=== PATIENT | female | born 1930 | race Caucasian/White ===

== ENCOUNTER 2017-12-09 09:04 | Outpatient (CLI) | payer MEDICARE, BC ==
--- NOTE | 2017-12-09 14:05 | MRI ---
MRI BRAIN WITH AND WITHOUT CONTRAST: DATE: 12/09/2017. HISTORY: An 87-year-old female with R20.9, sensation disturbance of skin. R41.89, cognitive impairment. TECHNIQUE: Multiple sequences obtained in axial, sagittal, and coronal planes; pre and post IV injection of gado linium-based contrast agent: 11 mL of MultiHance FINDINGS: The ventricles are normal in size and configuration. There is no restricted diffusion, abnormal intr aaxial enhancement, mass, midline shift or any other mass effect, recent intraaxial hemorrhage, or ex traaxial fluid collection. There is a moderate degree of T2-hyperintensities in the cerebral white ma tter consistent with chronic ischemic white matter changes due to microvascular atherosclerosis. The re is a tiny old lacunar infarction in the right caudate nucleus. There is no major interval change overall since 10/15/2014. IMPRESSION: 1) Moderate chronic ischemic white matter changes. 2) Tiny old lacune at right caudate nucleus. 3) Otherwise negative. jn[] POS: [facility]
== END 2017-12-09 09:05 | disposition home or self-care (01) ==
LOC: SCSMRI 09:04
PROVIDERS: ATTEND Family Medicine
DX: R41.89 Other symptoms and signs involving cognitive functions and awareness (principal); R20.9 Unspecified disturbances of skin sensation
CPT/HCPCS: 70553; 82565

== ENCOUNTER 2018-05-26 19:43 | Emergency (ER) | payer MEDICARE, BC | END 2018-05-26 20:39 | disposition home or self-care (01) | LOC: SCSER 19:43 | DX: I10 Essential (primary) hypertension (principal); E78.00 Pure hypercholesterolemia, unspecified; Z79.899 Other long term (current) drug therapy | CPT/HCPCS: 93005 ==

== ENCOUNTER 2018-08-06 09:49 | Emergency (ER) | payer BC, MEDICARE ==
--- NOTE | 2018-08-06 11:06 | CT ---
Exam: Head CT without contrast HISTORY: Pain. Emesis. Nausea. COMPARISON: none FINDINGS: Hemorrhage: No intraparenchymal hemorrhage or extra-axial hematoma. Brain parenchyma: Cortical conner-white matter differentiation is preserved. No mass effect or midline shift. Basilar cisterns are patent.Diffuse white matter hypodensities due to chronic small vessel ischemic change. 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 Ventricular system: Ventricles and sulci are patent and symmetric. Calvarium: Intact. Sinuses and mastoid air cells: Adequate aeration. IMPRESSION: No acute intracranial process.
[2018-08-06] MEDS ORDERED: Metoclopramide HCl 10 MG/2 ML VIAL ONE (11:11)
--- NOTE | 2018-08-06 11:14 | CT ---
Exam: CT cervical spine without contrast HISTORY: Trauma. Pain. COMPARISON: None FINDINGS: No craniocervical dissociation. Appropriate alignment of the lateral masses of C1 and C2. Intact odon toid process Appropriate alignment of the facets. Soft tissue neck structures: No mass, lymphadenopathy or hematoma. No prevertebral soft tissue swelli ng. Upper mediastinum and lung apices: Unremarkable Central spinal canal: Varying degrees of central canal stenosis and neural foraminal narrowing on the basis of degenerative change. There is significant neural foraminal narrowing at multiple levels. There is mass effect upon the cervical cord secondary to disc osteophyte complex at C3-4-C5 and C5-C6 . Result in moderate central canal stenosis at C4-C5 and [id number] central canal stenosis at C5-C6. Vertebral bodies: Cervical spine vertebral body height is maintained. No fracture. IMPRESSION: 1. No fracture 2. Degenerative changes of the cervical spine with significant foraminal narrowing and central canal stenosis. Greatest degree of central canal stenosis at C4-C5 and to lesser extent at C5-C6.
[2018-08-06] MEDS ORDERED: Meclizine HCl 25 MG TAB ONE (11:17)
[2018-08-06 11:19] LABS: #Basophils 0.1 thou/uL (0.0-0.2); #Eosinphils 0.2 thou/uL (0.0-0.7); #Monocytes 0.8 thou/uL (0.11-0.59); #Neutrophils 5.2 thou/uL (1.40-6.50); %Basophils 0.7 % (0.0-1.0); %Eosinophils 2.7 % (0.0-10.0); %Lymphocytes 32.4 % (21.0-51.0); %Monocytes 8.2 % (0.0-10.0); Hemoglobin 14.4 g/dL (12.0-16.0); Mean Corpuscular Hemoglobin 32.6 pg (27.0-31.0); Mean Corpuscular Volume 92.9 fL (78.0-98.0); Mean Platelet Volume 7.3 fL (7.4-10.4); Platelet Count 203 thou/uL (130-400); RBC Distribution Width 11.4 % (11.5-14.5); Red Blood Cell (RBC) Count 4.41 mill/uL (4.20-5.40); White Blood Cell (WBC) Count 9.3 thou/uL (4.8-10.8)
[2018-08-06 11:49] LABS: ALT (SGPT) 14 U/L (8-55); AST (SGOT) 12 U/L (5-34); Alkaline Phosphatase 60 U/L (40-150); Anion Gap 12 mmol/L (10-20); BUN (Urea Nitrogen) 17 mg/dL (9.8-20.1); Bilirubin, Total 0.5 mg/dL (0.2-1.2); Calc. Creatinine Clearance 0 mL/min (70-130); Calcium 9.2 mg/dL (7.8-10.44); Carbon Dioxide 27 mmol/L (23-31); Chloride 101 mmol/L (98-107); Estimated GFR-MDRD 54; Globulin 2.7 g/dL (2.4-3.5); Glucose 84 mg/dL (83-110); Potassium 4.1 mmol/L (3.5-5.1); Protein, Total 6.7 g/dL (6.0-8.3); Sodium 136 mmol/L (136-145)
== END 2018-08-06 12:41 | disposition home or self-care (01) ==
LOC: ERS 09:49
DX: R51 Headache (principal); M54.2 Cervicalgia; R42 Dizziness and giddiness; I10 Essential (primary) hypertension; E78.00 Pure hypercholesterolemia, unspecified; Z79.899 Other long term (current) drug therapy
CPT/HCPCS: 70450; 72125; 80053; 85025; 94760; 96365; J2765; J8499

== ENCOUNTER 2018-09-04 08:32 | Emergency (ER) | payer MEDICARE, BC ==
--- NOTE | 2018-09-04 09:14 | RAD ---
RIGHT SHOULDER 3 VIEWS: Date: 09/04/18 HISTORY: Pain. COMPARISON: None. FINDINGS: Mild calcific tendinosis right rotator cuff. Mild degenerative disease at the glenohumeral joint. No acute fracture or malalignment. Visualized ribs are unremarkable. IMPRESSION: 1. Calcific tendinosis right rotator cuff. 2. Mild degenerative disease of glenohumeral joint. 3. No acute abnormality. POS: [facility]
[2018-09-04] MEDS ORDERED: Acetaminophen 650 MG Suppository ONE (09:37)
[2018-09-04] MEDS ORDERED: Acetaminophen 500 MG TAB ONE (09:37)
== END 2018-09-04 10:15 | disposition home or self-care (01) ==
LOC: ERS 08:32
DX: S40.011A Contusion of right shoulder, initial encounter (principal); M75.91 Shoulder lesion, unspecified, right shoulder; I10 Essential (primary) hypertension; E78.00 Pure hypercholesterolemia, unspecified; K21.9 Gastro-esophageal reflux disease without esophagitis; W06.XXXA Fall from bed, initial encounter

== ENCOUNTER 2019-04-09 08:32 | Outpatient (CLI) | payer MEDICARE, BC ==
--- NOTE | 2019-04-09 10:51 | CT ---
CT ABDOMEN AND PELVIS WITH IV AND ORAL CONTRAST: Date: 04/09/2019 HISTORY: Loss of appetite and weight loss over a month. FINDINGS: There are chronic changes at the lung bases. A moderate sized hiatal hernia is present. There is a qu estionable mass in the right breast. The patient is post cholecystectomy and appendectomy, and probable hysterectomy. The liver, spleen, pancreas, and adrenal glands are normal. There is a 6 mm nonobstructing right el l calculus. There are small low density lesions in the kidneys, likely cysts. No hydroureteronephrosi s seen on either side. No free air, free fluid, or lymphadenopathy noted in the abdomen or pelvis. The small bowel loops are not abnormally dilated. There is colonic diverticulosis. There are vascular calcifications without evidence of aneurysmal dilatation of the abdominal aorta. T here are degenerative changes in the spine. IMPRESSION: 1. Moderate sized hiatal hernia. 2. Colonic diverticulosis. 3. Probable right breast mass. Further valuation with mammogram and ultrasound should be performed. POS: OFF
[2019-04-09] MEDS ORDERED: Iopamidol-370 76% 500 ML 1 ML ONE (14:29)
== END 2019-04-09 08:33 | disposition home or self-care (01) ==
LOC: BICCT 08:32
PROVIDERS: ATTEND Internal Medicine
DX: R63.4 Abnormal weight loss (principal); R63.0 Anorexia; K44.9 Diaphragmatic hernia without obstruction or gangrene; K57.30 Diverticulosis of large intestine without perforation or abscess without bleeding
CPT/HCPCS: 74177; 82565; Q9967

== ENCOUNTER 2019-04-19 08:04 | Outpatient (CLI) | payer MEDICARE, BC ==
--- NOTE | 2019-04-19 09:16 | ULT ---
RIGHT BREAST ULTRASOUND: HISTORY: Abnormal finding on CT abdomen and pelvis of 04/09/2019. FINDINGS: Correlation is made with the mammogram of the same date. Sonographic evaluation of the retroareolar region of the right breast demonstrates no abnormality. IMPRESSION: BIRADS category 2 - benign findings. Return to annual mammographic screening. POS: [facility]
--- NOTE | 2019-04-19 12:42 | MMO ---
Bilateral MAMMO Bilat Diag [facility]. CLINICAL HISTORY: Patient is 88 years old and is seen for diagnostic exam. The patient has no family history of breast cancer. The patient has no personal history of cancer. VIEWS: The views performed were: bilateral craniocaudal with tomosynthesis; bilateral mediolateral oblique with tomosynthesis; and bilateral mediolateral with tomosynthesis. FILMS COMPARED: The present examination has been compared to prior imaging studies performed at [facility] on 01/26/2013 and 04/19/2019, and at [facility] [place] on 12/03/2009 and 01/01/2011. This study has been interpreted with the assistance of computer-aided detection. MAMMOGRAM FINDINGS: There are scattered fibroglandular densities. No sono or mammo abnormality is seen in the right retroaerolar breast. There are no suspicious masses, suspicious calcifications, or new areas of architectural distortion. IMPRESSION: THERE IS NO MAMMOGRAPHIC EVIDENCE OF MALIGNANCY. A ROUTINE FOLLOW-UP MAMMOGRAM IN 1 YEAR IS RECOMMENDED. THE RESULTS OF THIS EXAM WERE SENT TO THE PATIENT. ACR BI-RADS Category 2 - Benign finding MAMMOGRAPHY NOTE: 1. A negative mammogram report should not delay a biopsy if a dominant of clinically suspicious mass is present. 2. Approximately 10% to 15% of breast cancers are not detected by mammography. 3. Adenosis and dense breasts may obscure an underlying neoplasm. Reported by: ESTELLE GARZA MD Electonically Signed: [id number]
== END 2019-04-19 08:05 | disposition home or self-care (01) ==
LOC: BICMAMMO 08:04
PROVIDERS: ATTEND Internal Medicine
DX: R93.89 Abnormal findings on diagnostic imaging of other specified body structures (principal)
CPT/HCPCS: 76642; 77066; G0279